=== PATIENT | female | born 1990 | race Caucasian/White ===

== ENCOUNTER → 2016-08-24 | Outpatient (CLI) | payer OTHER ==
--- NOTE | 2016-08-24 19:18 | DIAGNOSTIC IMAGING REPORT ---
BONE SCAN WHOLE BODY CLINICAL HISTORY: Z15.89 HLA B27 [id number] Chronic sacroiliac painM54.5 COMPARISON STUDY: MRI the lumbar spine dated March 20, 2016, conventional radiographic study sacroiliac joints dated 08/03/2016 FINDINGS: The patient was injected with 26.5 mCi of technetium 99m MDP. Delayed whole body images were acquired. The skeletal uptake is symmetric and appears normal. There is no pathologic SI joint activity. IMPRESSION: Normal whole-body bone scan. Electronically signed by: Jigar Flowers M.D. 08/24/2016 7:16 PM Dictated Date/Time: 08/24/2016 7:14 PM
== END | disposition home or self-care (01) ==
LOC: C.NUCL 14:05
PROVIDERS: ATTEND Internal Medicine Rheumatology
DX: M54.5 Low back pain (principal); M53.3 Sacrococcygeal disorders, not elsewhere classified; Z15.89 Genetic susceptibility to other disease